=== PATIENT | male | born 1995 | race Caucasian/White ===

== ENCOUNTER 2020-02-15 23:53 | Emergency (ER) | payer BC, SELFPAY ==
--- NOTE | 2020-02-16 00:01 | ED.LOWEXIN ---
HPI - Extremity Injury (Lower) General Chief Complaint: Extremity Injury, Lower Stated Complaint: right ankle injury/sent from [place] Time Seen by Provider: 02/16/20 00:00 Source: patient and family Mode of arrival: Ambulatory Limitations: no limitations History of Present Illness HPI Narrative: 24-year-old male nonsmoker with no medical problems presents with a few of his friends in the chief complaint of a right ankle injury earlier tonight. He was playing softball and running and injured his ankle, he thinks he rolled it but isn't really sure. He states he felt a pop and now has significant pain with any ambulation and improvement with rest. He denies other injury such as hip or knee pain. He denies any numbness, tingling or weakness. He was evaluated on scene by paramedics on [facility] and encouraged to be seen here for further evaluation MD complaint: ankle injury Injury: Right: ankle Type of Injury: inversion Place: street/outdoors Severity: moderate Relieving factors: immobilization Exacerbating factors: weight bearing and movement Context: running Associated symptoms: snap/pop sensation and swelling Other symptoms: none Treatments prior to arrival: bandage Review of Systems Constitutional Constitutional: Denies chills, Denies fatigue, Denies fever(s), Denies frequent falls, Denies lethargy and Denies weakness Eyes Eyes: Denies change in vision, Denies eye discharge, Denies irritation and Denies loss of vision ENT Ears, Nose, Mouth, and Throat: Denies change in voice, Denies dizziness, Denies neck pain, Denies sore throat and Denies throat swelling Cardiovascular Cardiovascular: Denies chest pain, Denies irregular heart rhythm, Denies lightheadedness, Denies palpitations, Denies dyspnea, Denies dyspnea on exertion and Denies orthopnea Respiratory Respiratory: Denies cough, Denies dyspnea, Denies dyspnea on exertion and Denies wheezing Gastrointestinal Gastrointestinal: Denies abdominal pain, Denies change in bowel habits, Denies diarrhea, Denies nausea and Denies vomiting Musculoskeletal Musculoskeletal: Reports arthralgias, Reports joint swelling, Denies neck pain and Denies numbness Integumentary/Breasts Skin/Breast: Denies pruritus, Denies erythema, Denies rash and Denies wounds Neurologic Neurologic: Denies behavioral changes, Denies confusion, Denies dizziness, Denies frequent falls, Denies loss of vision, Denies numbness and Denies weakness Psychiatric Psychiatric: Denies anxiety, Denies behavioral changes, Denies confusion, Denies depression, Denies homicidal ideation and Denies suicidal ideation Endocrine Endocrine: Denies fatigue, Denies flushing and Denies palpitations Hematologic/Lymphatic Hematologic/Lymphatic: Denies easy bruising Allergic/Immunologic Allergic/Immunologic: Denies urticaria, Denies throat swelling and Denies wheezing Patient History Smoking Status: Never smoker Substance Use Type: does not use Exam Narrative Exam Narrative: GEN: AOx3 and in mild distress EYES: Pupils are equal, round, and reactive to light and accommodation. Extraoccular muscles are intact bilaterally. There is no subconjunctival hemorrhage or exudate. CHEST: Lungs are clear to auscultation bilaterally and free of wheezes, rales, or rhonchi. Heart rate is regular rhythm, there are no murmurs, clicks, rubs, or gallops. There is no chest wall tenderness. ABD: Abdomen is soft and nontender. There is no guarding or rebound. Bowel sounds are normal in all 4 quadrants. There is no mass or organomegaly. EXT: Full but painful range of motion of right ankle with swelling around medial and lateral malleolus. No obvious ligamentous instability. No obvious deformity. Closed, neurovascularly intact. Majority of tenderness is anterior to the tibiotalar joint SKIN: Warm, pink, and dry. No erythema or rash Initial Vital Signs Initial Vital Signs: Vital Signs Temperature 98.4 F 02/16/20 00:02 Pulse Rate 69 02/16/20 00:02 Respiratory Rate 14 02/16/20 00:02 Blood Pressure 134/67 02/16/20 00:02 Pulse Oximetry 99 02/16/20 00:02 Procedures Orthopedic Splinting/Casting Injury #1: Side: right Lower Extremity Injury Location: ankle Lower Extremity Immobilizer: boot orthosis Other Orthopedic Equipment: crutches Post splinting neuro exam: intact Post splinting vascular exam: intact Placed by: Nursing Course Orders Ordered: ED Orders 02/16/20 00:04 XR ankle RT min 3V Stat Vital Signs Vital signs: Vital Signs - 8 hr 02/16/20 00:02 02/16/20 00:58 Temperature 98.4 F Pulse Rate 69 74 Respiratory Rate 14 12 Blood Pressure 134/67 113/56 L Pulse Oximetry 99 97 MDM - Extremity Injury (Lower) Imaging Data Extremity x-ray #1: Attestation: I personally reviewed and interpreted this imaging study as follows: My Impression: No acute bony abnormality. Ankle mortise appears normal Discharge Plan Departure Patient Disposition: Home Clinical Impression: Ankle sprain and strain Discharge Date/Time: 02/16/20 00:59 Instructions: DI for Ankle Sprain Activity Restrictions/Additional Instructions: *You have been diagnosed with [ankle sprain, no obvious fracture or dislocation on the x-ray, however I do suspect possibly some ligamentous injury given the amount of swelling *What to do: *Take medications as directed *Follow up with your primary care provider in 2-3 days, call for an appointment. Let them know you were seen in the Emergency Department and that we ask that you be seen in follow up *Return to ER if you should have any new, worsening or concerning symptoms Radiographic study has been interpreted by an emergency physician. The official diagnosis by radiology will be performed within the next 24 hours and should there be any change in outcome we will notify you of how to proceed. Referrals: Keena Davis MD [Physician] -
[2020-02-16 00:02] VITALS: BP 134/67; PULSE 69; RESP 14; TEMP 36.9; O2SAT 99
--- NOTE | 2020-02-16 00:04 | DI.RAD.S_ITS ---
PROCEDURE: XR ANKLE RT MIN 3V INDICATIONS: pain/swelling/twisting inury TECHNIQUE: 3 views of the ankle were acquired. COMPARISON: None. FINDINGS: Bones: No fractures or dislocations. Ankle mortise is normally aligned. No suspicious bony lesions. Soft tissues: No tibiotalar joint effusion. Achilles tendon appears normal. Soft tissue swelling is noted ligamentous injury cannot be excluded. IMPRESSION: No fracture. No osseous lesion. If symptoms and/or clinical suspicion for pathology persists, further assessment with repeat radiographs (7-10 days) or advanced imaging (e.g. CT, MRI or bone scan) may be helpful. Dictated by: Ana Stevenson MD, PhD on 02/16/2020 at 8:08 Approved by: Ana Stevenson MD, PhD on 02/16/2020 at 8:13
[2020-02-16 00:58] VITALS: BP 113/56; PULSE 74; RESP 12; O2SAT 97
== END 2020-02-16 00:59 | disposition home or self-care (01) ==
LOC: ED 02-16 00:48
PROVIDERS: Emergency Provider Emergency Medicine
DX: S93.401A Sprain of unspecified ligament of right ankle, initial encounter (principal); S96.911A Strain of unspecified muscle and tendon at ankle and foot level, right foot, initial encounter; Y93.64 Activity, baseball
CPT/HCPCS: 73610; 99282; 99283